=== PATIENT | female | born 1955 | race Caucasian/White ===

== ENCOUNTER 2020-10-05 12:05 | Day surgery (SDC) | payer MEDICARE, MEDICAID ==
[2020-10-05] VITALS (9 sets, daily range): BP systolic 113–141; BP diastolic 62–88
[~2020-10-05] VITALS: Ht 157.5 cm; Wt 62.1 kg
[2020-10-05] MEDS ORDERED: LOSA50TA3 PO (12:34)
[2020-10-05] MEDS ORDERED: normal saline 1,000 ML IV SCH (12:40)
[2020-10-05] MEDS ORDERED: diphenhydrAMINE 25mg capsule PO PRN (12:40)
[2020-10-05 12:54] LABS: BASOPHILS % (AUTO) 0.6 % (0-1); EOSINOPHILS # (AUTO) 0.1 X10'3 (0-0.9); EOSINOPHILS % (AUTO) 1.3 % (0-6); HEMATOCRIT 36.3 % (35.0-45.0); HEMOGLOBIN 12.1 g/dl (12.0-16.0); LYMPHOCYTES # (AUTO) 2.2 X10'3 (1.1-4.8); LYMPHOCYTES % (AUTO) 41.2 % (21-51); MEAN CORPUSCULAR HEMOGLOBIN 30.7 PG (27.0-31.0); MEAN CORPUSCULAR HGB CONC 33.3 g/dL (33.0-36.5); MEAN CORPUSCULAR VOLUME 92.1 FL (78-98); MEAN PLATELET VOLUME 9.1 FL (7.4-10.4); MONOCYTES # (AUTO) 0.4 X10'3 (0-0.9); MONOCYTES % (AUTO) 7.3 % (2-12); NEUTROPHILS # (AUTO) 2.7 X10'3 (1.8-7.7); NEUTROPHILS % (AUTO) 49.6 % (42-75); PLATELET COUNT 219 X10'3 (140-440); RED BLOOD COUNT 3.94 X10'6 (4.20-5.60); RED CELL DISTRIBUTION WIDTH 13.1 % (11.5-14.5); WHITE BLOOD COUNT 5.4 X10'3 (4.5-11.0)
[2020-10-05 13:01] LABS: ALBUMIN 3.8 G/DL (3.4-5.0); ANION GAP 9 (8-16); BLOOD UREA NITROGEN 19 MG/DL (7-18); BUN/CREATININE RATIO 22.4 (6.6-38.0); CALCIUM 8.7 MG/DL (8.5-10.1); CHLORIDE 106 MMOL/L (99-107); CREATININE 0.85 MG/DL (0.40-0.90); GLUCOSE 89 MG/DL (70-104); MAGNESIUM 2.4 MG/DL (1.5-2.4); POTASSIUM 3.8 MMOL/L (3.5-5.1); SODIUM 143 MMOL/L (135-145); TOTAL CARBON DIOXIDE 28.4 MMOL/L (24-32); eGFR 67 ML/MIN
[2020-10-05] MEDS ORDERED: verapamil 2.5 mg/ml inj IV ONE (15:37)
[2020-10-05] MEDS ORDERED: midazolam 1 mg/ML 2ml injection ONE ×2 (15:37→16:18)
[2020-10-05] MEDS ORDERED: heparin 1,000unit/ml 10ml vial 10 ML ONE (15:38)
[2020-10-05] MEDS ORDERED: iohexol 350MG/ML 100ml bottle IV ONE (15:38)
[2020-10-05] MEDS ORDERED: LIDOcaine 1% (10mg/ml)w/preservative injection 20ml MDV ONE (15:38)
[2020-10-05] MEDS ORDERED: nitroGLYCERIN-Tridil 50MG/D5W 250 ML IV ONE (15:38)
[2020-10-05] MEDS ORDERED: iohexol 350 MG/ML 50ML vial IV ONE (15:38)
[2020-10-05] MEDS ORDERED: fentaNYL/PF 50MCG/1 ML 2ML syringe ONE (15:38)
== END 2020-10-05 19:39 | disposition home or self-care (01) ==
LOC: SSTAY O 12:05
PROVIDERS: ATTEND Internal Medicine Cardiovascular Disease
DX: R07.89 Other chest pain (principal); E78.00 Pure hypercholesterolemia, unspecified; I10 Essential (primary) hypertension; I47.1 Supraventricular tachycardia; Z79.899 Other long term (current) drug therapy; Z79.82 Long term (current) use of aspirin; Z98.890 Other specified postprocedural states; Z72.89 Other problems related to lifestyle; Z83.6 Family history of other diseases of the respiratory system; Z82.49 Family history of ischemic heart disease and other diseases of the circulatory system
CPT/HCPCS: 36415; 80048; 83735; 85025; 85610; 93005; 93458; 99152; 99153; C1769; C1894; J1644; J2001; J2250; J3010; J7030; Q0163; Q9967; A4620; J3490

== ENCOUNTER 2021-05-18 06:46 | Inpatient (IN) | payer MEDICARE, MEDICAID ==
[2021-05-10 15:03] LABS: BASOPHILS % (AUTO) 0.5 % (0-1); EOSINOPHILS # (AUTO) 0.1 X10'3 (0-0.9); LYMPHOCYTES # (AUTO) 2.7 X10'3 (1.1-4.8); MEAN CORPUSCULAR HEMOGLOBIN 31.5 PG (27.0-31.0); MEAN CORPUSCULAR HGB CONC 34.1 g/dL (33.0-36.5); MEAN CORPUSCULAR VOLUME 92.4 FL (78-98); MEAN PLATELET VOLUME 8.6 FL (7.4-10.4); MONOCYTES # (AUTO) 0.6 X10'3 (0-0.9); MONOCYTES % (AUTO) 8.3 % (2-12); NEUTROPHILS # (AUTO) 3.2 X10'3 (1.8-7.7); NEUTROPHILS % (AUTO) 49.2 % (42-75); PRE OP HEMATOCRIT 37.6 % (35.0-45.0); PRE OP HEMOGLOBIN 12.8 g/dL (12.0-16.0); PRE OP PLATELET COUNT 257 X10'3 (140-440); PRE OP PROTIME 10.5 SECONDS (9.0-12.0); RED BLOOD COUNT 4.06 X10'6 (4.20-5.60); RED CELL DISTRIBUTION WIDTH 13.2 % (11.5-14.5)
[2021-05-10 15:04] LABS: ALBUMIN 3.6 G/DL (3.4-5.0); ALBUMIN/GLOBULIN RATIO 1.1 (1.1-1.5); ALKALINE PHOSPHATASE 72 IU/L (46-116); BLOOD UREA NITROGEN 15 MG/DL (7-18); BUN/CREATININE RATIO 16.5 (6.6-38.0); CALCIUM 8.3 MG/DL (8.5-10.1); CHLORIDE 106 MMOL/L (99-107); CREATININE 0.91 MG/DL (0.40-0.90); PRE OP ALT 30 U/L (30-65); PRE OP ANION GAP 7 (8-16); PRE OP AST 21 U/L (10-37); PRE OP BILIRUB, TOTAL 0.2 MG/DL (0.0-1.0); PRE OP GLUCOSE 75 MG/DL (70-104); PRE OP POTASSIUM 4.1 MMOL/L (3.4-5.1); PRE OP SODIUM 143 MMOL/L (135-145); TOTAL CARBON DIOXIDE 29.7 MMOL/L (24-32); TOTAL PROTEIN 6.9 G/DL (6.4-8.2); eGFR 62 ML/MIN
[~2021-05-18] VITALS: Ht 157.5 cm; Wt 62.7 kg
[2021-05-18] VITALS (20 sets, daily range): BP systolic 97–144; BP diastolic 52–90
[~2021-05-18 06:46] MED LIST: BUTA-244 PO; DOCUMENT DATE & TIME OF BETA-BLOCKER PO ONE; LORA-268 PO; LOSA50TA3 PO; METO-395 PO; VANCOMYCIN INJ 1000 MG in NORMAL SALINE 250ml IV.SOLN IV ONE; acetaminophen 325mg tablet PO ONE; cefazolin/dext.iso 2gm/50ml IV ONE; celeCOXIB 100mg capsule PO ONE; famotidine 20mg tablet PO ONE; gabapentin 300mg capsule PO ONE; metoclopramide 5 mg/ml inj IV ONE; oxyCODONE SR 10mg (sust. release) tab -2 tabs (20mg) PO ONE; ringers solution, lacted 1,000 ML IV SCH; tranexamic acid inj. 1,000 MG in 0.7% saline 100 ML PMX IV ONE
[2021-05-18] MEDS ORDERED: bisacodyl 10mg suppository rectal RC PRN (07:15)
[2021-05-18] MEDS ORDERED: acetaminophen 325mg tablet PO PRN (07:15)
[2021-05-18] MEDS ORDERED: diphenhydrAMINE 25mg capsule PO PRN ×2 (07:15)
[2021-05-18] MEDS ORDERED: HYDROmorphone 1 mg/ml syringe IV PRN (07:15)
[2021-05-18] MEDS ORDERED: magnesium hydroxide 30ml (MOM) UD suspension PO PRN (07:15)
[2021-05-18] MEDS ORDERED: HYDROmorphone inj. 0.5 MG/0.5 ML DISP.SYRIN IV PRN (07:15)
[2021-05-18] MEDS ORDERED: ketorolac trometh. 30mg/ml inj. ONE (07:50)
[2021-05-18] MEDS ORDERED: epiNEPHrine 1 mg/ml inj ONE (07:50)
[2021-05-18] MEDS ORDERED: cloNIDine hcl/PF 100mcg/ml inj ONE (07:50)
[2021-05-18] MEDS ORDERED: ROPIVAcaine 0.5% (5mg/ml) 30ml vial ONE ×2 (07:50→10:10)
[2021-05-18] MEDS ORDERED: vancomycin 1,000mg inj ONE (07:55)
[2021-05-18] MEDS ORDERED: MIDAZolam 1 MG/ML 5ML VIAL ONE (08:24)
[2021-05-18] MEDS ORDERED: fentaNYL/PF 50MCG/1 ML 2ML syringe ONE (08:24)
[2021-05-18] MEDS ORDERED: ondansetron/PF 4mg/2ml inj IV PRN (09:10)
[2021-05-18] MEDS ORDERED: morphine 2 MG/ML inj. syringe IV PRN (09:10)
[2021-05-18] MEDS ORDERED: meperidine/PF 25mg/ml syringe IV PRN ×3 (09:10)
[2021-05-18] MEDS ORDERED: ringers solution, lacted 1,000 ML IV SCH (09:10)
[2021-05-18] MEDS ORDERED: ROPIVAcaine 0.2% (10 MG/5 ML) BOLUS INJECTION ADDCANAL PRN (09:10)
[2021-05-18] MEDS ORDERED: morphine 4 MG/ML inj SYRINge IV PRN (09:10)
[2021-05-18] MEDS ORDERED: proCHLORperazine 10 MG/2 ml inj IV PRN (09:10)
[2021-05-18] MEDS ORDERED: dexamethasone sod phosphate 4mg/ml inj. ONE (10:10)
--- NOTE | 2021-05-18 10:20 | NUR ---
Received from OR via BED, accompanied by Anesthesiologist ANALI and report given by Anesthesiolgist. PT DROWSY, OXYGENATING WELL ON ROOM AIR, NO RESP DISTRESS NOTED. NO C/O NAUSEA OR PAIN AT THIS TIME, PT HAD SAB. NO SENSATION OR MOVEMENT FROM THE WAIST DOWN. PEDAL PULSES PAL BILAT. L KNEE WRAP IN PLACE OVER MARIMAR DSG. POWDER PACK TO L KNEE ORDERED. ON-Q CONNECTED TO LLE CATHETER PER MD ORDERS. SCDS IN PLACE, NO CHAMBERLAIN.
[2021-05-18] MEDS: ROPIVAcaine 0.2%/PF PUMP/bolus 545 ML ADDCANAL SCH (10:28)
--- NOTE | 2021-05-18 12:00 | NUR ---
Report called to receiving nurse. Transferred via BED Belongings WITH , PT GLASSES WITH PT. DENIES PAIN, SAB STILL EFFECTVE. NO MOVEMENT YET. TOLERATING PO FLUIDS WELL. VSS. TELE ORDER DCD PER DR RUDOLPH. TRANSFERRED TO 3 SURG IN STABLE CONDITION. Special Issues communicated to receiving nurse.
[2021-05-18] MEDS: potassium cl 20mEq in 1/2 NS 1,000 ML IV SCH ×2 (12:32→15:15)
[2021-05-18] MEDS ORDERED: tranexamic acid inj. 630 MG in normal saline 100ml IV soln 93.7 ML IV ONE (13:30)
[2021-05-18] MEDS: oxyCODONE/APAP 10/325mg tablet PO PRN ×2 (14:48→20:18)
[2021-05-18] MEDS: losartan 50mg tablet PO SCH (16:00)
[2021-05-18] MEDS: ceFAZolin/D5W- 1GM premix 50 ML IV SCH (16:46)
[2021-05-18] MEDS: aspirin 325mg tablet PO SCH (16:46)
[2021-05-18] MEDS: gabapentin 300mg capsule PO SCH ×2 (16:47→21:24)
[2021-05-18] MEDS: multivitamins, therapeutics tablet PO SCH (16:47)
[2021-05-18] MEDS: metoprolol succinate 25mg (24-HOUR) SR. Tablet PO SCH (16:49)
--- NOTE | 2021-05-18 18:36 | NUR ---
Problems reprioritized. Patient report given, questions answered & plan of care reviewed with Chandan MANCUSO.
[2021-05-18] MEDS: ascorbic acid 500mg tablet PO SCH (19:31)
[2021-05-18] MEDS ORDERED: vancomycin/NS 1 GM ADD-VANTAGE 250 ML IV SCH (20:00)
[2021-05-18] MEDS: LORazepam 0.5 MG tablet PO SCH (21:00)
[2021-05-18] MEDS: sennosides 8.6mg tablet PO SCH (21:24)
[2021-05-19] MEDS: oxyCODONE/APAP 10/325mg tablet PO PRN ×3 (00:01→13:06)
[2021-05-19] MEDS: ceFAZolin/D5W- 1GM premix 50 ML IV SCH (00:02)
[2021-05-19] MEDS: potassium cl 20mEq in 1/2 NS 1,000 ML IV SCH ×3 (04:26→12:59)
[2021-05-19 04:44] VITALS: BP 129/74
[2021-05-19 06:03] LABS: BASOPHILS % (AUTO) 0.4 % (0-1); EOSINOPHILS % (AUTO) 0.4 % (0-6); HEMATOCRIT 33.9 % (35.0-45.0); HEMOGLOBIN 11.2 g/dl (12.0-16.0); LYMPHOCYTES # (AUTO) 1.9 X10'3 (1.1-4.8); LYMPHOCYTES % (AUTO) 19.4 % (21-51); MEAN CORPUSCULAR HEMOGLOBIN 31.8 PG (27.0-31.0); MEAN CORPUSCULAR HGB CONC 33.1 g/dL (33.0-36.5); MEAN CORPUSCULAR VOLUME 96.2 FL (78-98); MEAN PLATELET VOLUME 9.5 FL (7.4-10.4); MONOCYTES # (AUTO) 0.7 X10'3 (0-0.9); MONOCYTES % (AUTO) 7.5 % (2-12); NEUTROPHILS # (AUTO) 6.9 X10'3 (1.8-7.7); NEUTROPHILS % (AUTO) 72.3 % (42-75); PLATELET COUNT 188 X10'3 (140-440); RED BLOOD COUNT 3.53 X10'6 (4.20-5.60); RED CELL DISTRIBUTION WIDTH 13.3 % (11.5-14.5); WHITE BLOOD COUNT 9.5 X10'3 (4.5-11.0)
--- NOTE | 2021-05-19 06:24 | NUR ---
PT RESTING IN BED. NO DISTRESS NOTED. PT HAS Q BALL IN PLACE AT 14ML HR. CALL LIGHT WITHIN REACH
--- NOTE | 2021-05-19 06:30 | NUR ---
Patient in room [facility]. I have received report from Ld Jameson and had the opportunity to ask questions and assume patient care.
[2021-05-19 06:47] LABS: ANION GAP 12 (8-16); CHLORIDE 106 MMOL/L (99-107); POTASSIUM 4.2 MMOL/L (3.5-5.1); SODIUM 139 MMOL/L (135-145); TOTAL CARBON DIOXIDE 21.3 MMOL/L (24-32)
[2021-05-19 07:00] VITALS: BP 106/73
[2021-05-19] MEDS: ondansetron/PF 4mg/2ml inj IV PRN ×2 (07:16→17:45)
[2021-05-19] MEDS: gabapentin 300mg capsule PO SCH ×3 (07:56→21:00)
[2021-05-19] MEDS: multivitamins, therapeutics tablet PO SCH (07:56)
[2021-05-19] MEDS: ascorbic acid 500mg tablet PO SCH ×2 (07:57→20:00)
[2021-05-19] MEDS: aspirin 325mg tablet PO SCH (07:57)
[2021-05-19] MEDS: losartan 50mg tablet PO SCH (07:57)
[2021-05-19] MEDS: metoprolol succinate 25mg (24-HOUR) SR. Tablet PO SCH (08:00)
[2021-05-19 11:45] VITALS: BP 119/59
--- NOTE | 2021-05-19 14:08 | NUR ---
Pt s/p left TKA, seen at bedside for written and verbal protein education. Pt verbalized understanding. Pt endorses a good appetite however reports feeling nauseous with PO intake. Pt reports receiving PRN antiemetic. Pt denies food allergies or food preferences. Pt denies difficulty chewing/swallowing. RD contact information provided and pt encouraged to reach out for questions and/or food preferences. Will remain available. Addendum: 05/19/21 at [address] Amended: Links added.
[2021-05-19] MEDS ORDERED: HYDROcodone/acetaminophen 10/325mg tab PO PRN (14:45)
[2021-05-19] MEDS ORDERED: HYDROcodone/acetaminophen 5mg/325mg tablet PO PRN (14:45)
[2021-05-19] MEDS ORDERED: normal saline 1000ml 1,000 ML IV ONE (14:50)
--- NOTE | 2021-05-19 18:22 | NUR ---
Patient in room [facility]. I have received report from Shirley MANCUSO and had the opportunity to ask questions and assume patient care.
[2021-05-19 19:51] VITALS: BP 161/78
[2021-05-19] MEDS: celeCOXIB 100mg capsule PO SCH (20:00)
[2021-05-19] MEDS: sennosides 8.6mg tablet PO SCH (21:00)
[2021-05-19] MEDS: LORazepam 0.5 MG tablet PO SCH (21:00)
[2021-05-19] MEDS ORDERED: proCHLORperazine 10 MG/2 ml inj IV ONE (21:10)
[2021-05-19 23:55] VITALS: BP 158/80
[2021-05-20 06:14] LABS: HEMATOCRIT 34.4 % (35.0-45.0); HEMOGLOBIN 11.7 g/dl (12.0-16.0)
[2021-05-20 06:15] LABS: BASOPHILS % (AUTO) 0.3 % (0-1); EOSINOPHILS # (AUTO) 0.1 X10'3 (0-0.9); EOSINOPHILS % (AUTO) 1.7 % (0-6); LYMPHOCYTES # (AUTO) 1.9 X10'3 (1.1-4.8); LYMPHOCYTES % (AUTO) 22.5 % (21-51); MEAN CORPUSCULAR HEMOGLOBIN 31.4 PG (27.0-31.0); MEAN CORPUSCULAR VOLUME 92.5 FL (78-98); MEAN PLATELET VOLUME 9.5 FL (7.4-10.4); MONOCYTES # (AUTO) 0.9 X10'3 (0-0.9); MONOCYTES % (AUTO) 10.6 % (2-12); NEUTROPHILS # (AUTO) 5.5 X10'3 (1.8-7.7); NEUTROPHILS % (AUTO) 64.9 % (42-75); PLATELET COUNT 208 X10'3 (140-440); RED BLOOD COUNT 3.72 X10'6 (4.20-5.60); WHITE BLOOD COUNT 8.4 X10'3 (4.5-11.0)
--- NOTE | 2021-05-20 06:18 | NUR ---
Patient in room [facility] 348. I have received report from Ld MANCUSO and had the opportunity to ask questions and assume patient care.
[2021-05-20 07:00] VITALS: BP 148/75
[2021-05-20] MEDS: metoprolol succinate 25mg (24-HOUR) SR. Tablet PO SCH (08:00)
[2021-05-20] MEDS: celeCOXIB 100mg capsule PO SCH (08:47)
[2021-05-20] MEDS: ascorbic acid 500mg tablet PO SCH (08:47)
[2021-05-20] MEDS: gabapentin 300mg capsule PO SCH (08:48)
[2021-05-20] MEDS: aspirin 325mg tablet PO SCH (08:48)
[2021-05-20] MEDS: losartan 50mg tablet PO SCH (08:48)
[2021-05-20] MEDS: multivitamins, therapeutics tablet PO SCH (08:48)
[2021-05-20] MEDS: ROPIVAcaine 0.2%/PF PUMP/bolus 545 ML ADDCANAL SCH (08:57)
[2021-05-20 11:00] VITALS: BP 155/79
--- NOTE | 2021-05-20 13:05 | NUR ---
Late entry: Discharged patient home, patient verbalized understanding of all instructions made. Peripheral IV catheter removed, tip intact. Instructed patient to ensure she has all her belongings with her before leaving the hospital. Patient was educated about the OnQ ball management including removal of the catheter when the medicine is empty. Instructed patient when to call the surgeon
== END 2021-05-20 13:05 | disposition home or self-care (01) | DRG 470 ==
LOC: PAS 06:46 → SUR 3N 06:47 → PAS 07:14 → SUR 3N 07:14 → PAS 05-20 05:40 → SUR 3N 05-20 05:40 → UNDOADMIN 05-20 05:40 → SUR 3N 05-20 05:40
PROVIDERS: ADMIT Orthopaedic Surgery; ATTEND Orthopaedic Surgery
PROC: 3E0T3BZ Introduction of Anesthetic Agent into Peripheral Nerves and Plexi, Percutaneous Approach (ICD-10-PCS; 2021-05-18)
PROC: 3E0T33Z Introduction of Anti-inflammatory into Peripheral Nerves and Plexi, Percutaneous Approach (ICD-10-PCS; 2021-05-18)
PROC: 0SRD0J9 Replacement of Left Knee Joint with Synthetic Substitute, Cemented, Open Approach (ICD-10-PCS; principal; 2021-05-18 08:08)
DX: M17.12 Unilateral primary osteoarthritis, left knee (principal); Z79.899 Other long term (current) drug therapy
CPT/HCPCS: 36415; 73560; 80051; 80053; 82948; 85025; 85610; 85730; 87081; 97110; 97530; A4215; A7000; C1713; C1776; G0378; J0171; J0690; J0735; J0780; J1100; J1170; J1885; J2250; J2405; J2765; J2795; J3010; J3370; J3480; J3490; J7030; J7120; U0003; U0005

== ENCOUNTER 2021-10-05 12:35 | Emergency (ER) | payer MEDICARE, MEDICAID ==
[~2021-10-05] VITALS: Ht 154.9 cm; Wt 60.0 kg
[~2021-10-05 12:35] MED LIST changes: -DOCUMENT DATE & TIME OF BETA-BLOCKER PO ONE; -VANCOMYCIN INJ 1000 MG in NORMAL SALINE 250ml IV.SOLN IV ONE; -acetaminophen 325mg tablet PO ONE; -cefazolin/dext.iso 2gm/50ml IV ONE; -celeCOXIB 100mg capsule PO ONE; -famotidine 20mg tablet PO ONE; -gabapentin 300mg capsule PO ONE; -metoclopramide 5 mg/ml inj IV ONE; -oxyCODONE SR 10mg (sust. release) tab -2 tabs (20mg) PO ONE; -ringers solution, lacted 1,000 ML IV SCH; -tranexamic acid inj. 1,000 MG in 0.7% saline 100 ML PMX IV ONE
[2021-10-05 13:20] LABS: BASOPHILS % (AUTO) 0.3 % (0-1); EOSINOPHILS # (AUTO) 0.1 X10'3 (0-0.9); EOSINOPHILS % (AUTO) 0.6 % (0-6); HEMATOCRIT 38.7 % (35.0-45.0); HEMOGLOBIN 12.8 g/dl (12.0-16.0); LYMPHOCYTES # (AUTO) 1.7 X10'3 (1.1-4.8); LYMPHOCYTES % (AUTO) 18.6 % (21-51); MEAN CORPUSCULAR HEMOGLOBIN 29.5 PG (27.0-31.0); MEAN CORPUSCULAR VOLUME 89.3 FL (78-98); MEAN PLATELET VOLUME 8.3 FL (7.4-10.4); MONOCYTES # (AUTO) 0.6 X10'3 (0-0.9); MONOCYTES % (AUTO) 6.9 % (2-12); NEUTROPHILS # (AUTO) 6.9 X10'3 (1.8-7.7); NEUTROPHILS % (AUTO) 73.6 % (42-75); PLATELET COUNT 265 X10'3 (140-440); RED BLOOD COUNT 4.33 X10'6 (4.20-5.60); RED CELL DISTRIBUTION WIDTH 14.4 % (11.5-14.5); WHITE BLOOD COUNT 9.3 X10'3 (4.5-11.0)
[2021-10-05 13:33] LABS: ALANINE AMINOTRANSFERASE 41 U/L (12-78); ALBUMIN 3.8 G/DL (3.4-5.0); ALBUMIN/GLOBULIN RATIO 1.2 (1.1-1.5); ALKALINE PHOSPHATASE 73 IU/L (46-116); ANION GAP 8 (8-16); ASPARTATE AMINO TRANSFERASE 26 U/L (10-37); BILIRUBIN,TOTAL 0.3 MG/DL (0.1-1.0); BLOOD UREA NITROGEN 16 MG/DL (7-18); BUN/CREATININE RATIO 16.2 (6.6-38.0); CALCIUM 8.8 MG/DL (8.5-10.1); CHLORIDE 102 MMOL/L (99-107); CREATININE 0.99 MG/DL (0.40-0.90); GLUCOSE 104 MG/DL (70-104); POTASSIUM 3.7 MMOL/L (3.5-5.1); SODIUM 139 MMOL/L (135-145); TOTAL CARBON DIOXIDE 29.5 MMOL/L (24-32); TOTAL PROTEIN 7.1 G/DL (6.4-8.2); eGFR 56 ML/MIN
[2021-10-05 13:43] LABS: LIPASE 159 U/L (73-393)
[2021-10-05] MEDS ORDERED: proCHLORperazine 10 MG/2 ml inj IV ONE (15:30)
[2021-10-05] MEDS ORDERED: normal saline 1000ML IV soln IVB ONE (15:30)
--- NOTE | 2021-10-05 16:44 | NUR ---
ASSISTING RN WITH PT CARE, PT IS RESTING QUIETLY ON GURKIERSTEN, FAMILY AT BEDSIDE, 1ST LITER NS INFUSING, MEDICATED PER ORDER
[2021-10-05] MEDS ORDERED: amox tr/potassium clavulanate 875/125mg TAB PO ONE (17:45)
[2021-10-05] MEDS ORDERED: ONDA4TAB12 PO (17:51)
[2021-10-05] MEDS ORDERED: AMOX-117 PO (17:51)
[2021-10-05 18:05] LABS: CLARITY,URINE CLEAR (Clear); COLOR,URINE YELLOW (Yellow); GLUCOSE, URINE NEGATIVE (Neg); KETONES,URINE TRACE mg/dl (Neg); LEUKOCYTE ESTERASE ,URINE NEGATIVE (Neg); NITRITES, URINE NEGATIVE (Neg); OCCULT BLOOD,URINE TRACE-INTACT (Neg); PROTEIN,URINE NEGATIVE (Neg); UROBILINOGEN,URINE 0.2 E.U/dL (0.2-1.0)
[2021-10-05 18:07] VITALS: BP 123/72
[2021-10-05 18:08] LABS: UA COLLECTION TYPE NON-SPECIFIED
[2021-10-05 18:12] LABS: BACTERIA,URINE 1+ /HPF (Neg); HYALINE CASTS 0-3 /LPF (NEGATIVE); MUCUS STRANDS FEW /LPF (Neg); SQUAMOUS EPITHELIAL CELL,UR MODERATE /LPF (FEW); WBC,URINE 0-4 /HPF (0-4)
== END 2021-10-05 18:08 | disposition home or self-care (01) ==
LOC: ER 12:35
DX: K52.9 Noninfective gastroenteritis and colitis, unspecified (principal); R11.0 Nausea; R07.89 Other chest pain; I10 Essential (primary) hypertension; Z86.69 Personal history of other diseases of the nervous system and sense organs; Z98.890 Other specified postprocedural states; Z79.2 Long term (current) use of antibiotics; Z79.899 Other long term (current) drug therapy
CPT/HCPCS: 36415; 74176; 80053; 81001; 83690; 83880; 84484; 85025; 93005; 96374; 99285; J0780; J7030

== ENCOUNTER 2021-10-13 10:29 | Outpatient (CLI) | payer MEDICARE, MEDICAID ==
[~2021-10-13 10:29] MED LIST changes: +AMOX-117 PO; +ONDA4TAB12 PO
[2021-10-13] MEDS ORDERED: iohexol 300mg/ml 100ml inj. ONE (10:53)
== END 2021-10-13 23:59 | disposition home or self-care (01) ==
LOC: RAD 10:29
PROVIDERS: ATTEND Family Medicine
DX: K57.30 Diverticulosis of large intestine without perforation or abscess without bleeding (principal); K76.89 Other specified diseases of liver; M47.819 Spondylosis without myelopathy or radiculopathy, site unspecified
CPT/HCPCS: 74177; Q9967

== ENCOUNTER 2024-11-09 11:19 | Emergency (ER) | payer MEDICARE, MEDICAID ==
[~2024-11-09] VITALS: Ht 154.9 cm; Wt 51.7 kg
[~2024-11-09 11:19] MED LIST changes: -AMOX-117 PO; +LOSA-416 PO; -LOSA50TA3 PO; +ONDA-243 PO; -ONDA4TAB12 PO
[2024-11-09 11:26] VITALS: TEMP 98
--- NOTE | 2024-11-09 11:41 | ELECTROCARDIOGRAPH REPORT ---
[facility] Test Date: 2024-11-09 Test Time: 11:38:33 Pat Name: NICKI MCDANIEL Department: EMERGENCY ROOM Room: Gender: F Audio Visual Engineer: IRISH : 1955 Requested By: MARIELA JEFFERS Order Number: [id number] Reading MD: Measurements Intervals Pound Rate: 66 P: 20 OR: 161 QRS: 6 QRSD: 102 T: 38 QT: 400 QTc: 420 Interpretive Statements Sinus rhythm Borderline T abnormalities, anterior leads Please click the below link to view image of tracing.
--- NOTE | 2024-11-09 12:01 | RADIOLOGY REPORT ---
CHEST RADIOGRAPH Indication: CP Technique: Single frontal view of the chest was obtained Comparison: None FINDINGS: Lines and Tubes: None Lungs: No focal consolidation. Pleura: No effusion. No pneumothorax. Cardiomediastinal contours: Unremarkable Bones: No acute osseous abnormality. IMPRESSION: 1. No acute cardiopulmonary disease.
[2024-11-09 12:02] LABS: BASOPHILS % (AUTO) 0.3 % (0-1); EOSINOPHILS % (AUTO) 0 % (0-6); HEMATOCRIT 39.1 % (35.0-45.0); LYMPHOCYTES # (AUTO) 2.5 X10'3 (1.1-4.8); LYMPHOCYTES % (AUTO) 51.8 % (21-51); MEAN CORPUSCULAR HGB CONC 33.3 g/dL (33.0-36.5); MONOCYTES # (AUTO) 0.4 X10'3 (0-0.9); MONOCYTES % (AUTO) 8.3 % (2-12); NEUTROPHILS # (AUTO) 1.9 X10'3 (1.8-7.7); NEUTROPHILS % (AUTO) 39.6 % (42-75); PLATELET COUNT 270 X10'3 (140-440); RED BLOOD COUNT 4.35 X10'6 (4.20-5.60); RED CELL DISTRIBUTION WIDTH 13.3 % (11.5-14.5); WHITE BLOOD COUNT 4.8 X10'3 (4.5-11.0)
[2024-11-09 12:54] LABS: APTT 28 SECONDS (22-32); PROTHROMBIN TIME 10.2 SECONDS (9.0-12.0)
[2024-11-09 12:56] LABS: ALANINE AMINOTRANSFERASE 28 U/L (12-78); ALBUMIN 3.9 G/DL (3.4-5.0); ALBUMIN/GLOBULIN RATIO 1.2 (1.1-1.5); ALKALINE PHOSPHATASE 86 IU/L (46-116); ANION GAP 8 (8-16); ASPARTATE AMINO TRANSFERASE 25 U/L (10-37); BILIRUBIN,TOTAL 0.4 MG/DL (0.1-1.0); BLOOD UREA NITROGEN 19 MG/DL (7-18); BUN/CREATININE RATIO 19.6 (10.0-20.0); CALCIUM 8.8 MG/DL (8.5-10.1); CHLORIDE 105 MMOL/L (99-107); CREATININE 0.97 MG/DL (0.40-0.90); GLUCOSE 85 MG/DL (70-104); POTASSIUM 4.8 MMOL/L (3.5-5.1); SODIUM 140 MMOL/L (135-145); TOTAL CARBON DIOXIDE 27.2 MMOL/L (24-32); TOTAL PROTEIN 7.2 G/DL (6.4-8.2); eCRCL 41 ML/MIN; eGFR 57 ML/MIN
[2024-11-09 13:06] LABS: FREE T4 (FREE THYROXINE) 1.05 NG/DL (0.73-1.40); PRO BRAIN NATRIURETIC PEPTIDE 287 PG/ML (0-125)
[2024-11-09 16:27] LABS: BILIRUBIN,URINE NEGATIVE (Neg); CLARITY,URINE CLEAR (Clear); COLOR,URINE YELLOW (Yellow); GLUCOSE, URINE NEGATIVE (Neg); KETONES,URINE TRACE mg/dl (Neg); LEUKOCYTE ESTERASE ,URINE TRACE (Neg); NITRITES, URINE NEGATIVE (Neg); OCCULT BLOOD,URINE SMALL (Neg); PROTEIN,URINE NEGATIVE (Neg); UROBILINOGEN,URINE 0.2 E.U/dL (0.2-1.0)
[2024-11-09 16:31] LABS: UA COLLECTION TYPE CLN CATCH MIDSTREAM; WBC,URINE 0-4 /HPF (0-4)
[2024-11-09 16:32] LABS: BACTERIA,URINE FEW /HPF (Neg); MUCUS STRANDS FEW /LPF (Neg); RBC,URINE 0-2 /HPF (0-2); SQUAMOUS EPITHELIAL CELL,UR MODERATE /LPF (FEW)
--- NOTE | 2024-11-09 17:14 | Physician Documentation ---
History of Present Illness ~ Chief Complaint: Chest Pain Stated Complaint: AFIB, CHEST PRESSURE CAME ON SUDDENLY Time Seen by MD: 15:57 Primary Medical Doctor: [facility] [place] [employer] Mode of Arrival: POV HPI 69-year-old female reports a chief complaint of chest pain. Patient states that she was at home where she had an episode it AFib was seen on her watch. Patient states that she did have mild chest pain but converted out of it on her own and states that she initially was going to come to the ER yesterday. Patient returns to the ER today for chest pain. She states it it has a improved but she feels quite a tightness. Currently not taking medications therapy has been in symptoms. No other complaints at this time Medication Reconciliation Allergies: Coded Allergies: No Known Allergies (Unverified , 10/05/20) Scheduled Lorazepam (Ativan), 1 TAB PO HS, (Reported) Losartan* (Cozaar*), 1 TAB PO DAILY, (Reported) Metoprolol Succinate (Metoprolol Succinate), 1 TAB PO DAILY, (Reported) Scheduled PRN Butalb/Acetaminophen/Caffeine (Ztipmx-Pfts-Qhgs 50-325-40 Tab), 1 TAB PO DAILY PRN for migraine headaches, (Reported) ONDANSETRON ODT 4mg tablet (Ondansetron Odt), 1 TABLET PO Q6H PRN for nausea/vomiting Past Medical History Past Medical History: Seizures, Hypertension, *MUSCULOSKELETAL* Past Surgical History: orthopedic surgeries Drug Use: none Lives In: Home Physical Exam Vital Signs: Temperature: 98.0, Source: Temporal, Heart Rate: 60, Respiratory Rate: 19, BP: 183/82, Pulse Oximetry: 98, Weight: 51.700 Oxygen Flow Rate: 0 Physical Exam General: Well developed, well nourished, no distress. HEENT: Atraumatic, normal conjunctiva, moist mucous membranes. Neck: Full range of motion, supple. Respiratory: Lungs clear, no respiratory distress. Chest: No accessory muscle use, nontender. Cardiovascular: Regular rate and rhythm. Gastrointestinal: Soft, nontender, nondistended. Bowel sounds present. Extremities: Normal range of motion, nontender, normal capillary refill, no deformity. Back: No midline tenderness, no CVA tenderness. Neurologic: Oriented x4. Distal gross motor and sensory intact all four extremities. Moves all 4 extremities spontaneously. Psychiatric: Normal mood and affect. Skin: Normal color, warm and dry. No edema, no ecchymosis Progress Results/Orders Results/Orders Orders - SCARLET RAYGOZA Chest,Single View (11/09/24 11:55) Cult Urine + [address] (11/09/24 16:32) Completed Orders - SCARLET RAYGOZA Pt Inr (11/09/24 11:55) PTT (11/09/24 11:55) Chest,Single View (11/09/24 11:55) TSH (11/09/24 11:55) Free T4 (11/09/24 11:55) Ua W/Microscopic, Cult If Ind (11/09/24 16:02) Vital Signs 11/09/24 11/09/24 11/09/24 11:26 15:54 15:57 Temp 98.0 Pulse 66 60 Resp 15 19 19 B/P (MAP) 176/84 183/82 (115) Pulse Ox 98 98 O2 Flow Rate 0 Laboratory Tests Test 11/09/24 11:44 11/09/24 14:28 11/09/24 16:02 White Blood Count 4.8 Red Blood Count 4.35 Hemoglobin 13.0 Hematocrit 39.1 Mean Corpuscular Volume 90.0 Mean Corpuscular Hemoglobin 30.0 Mean Corpuscular Hemoglobin Concent 33.3 Red Cell Distribution Width 13.3 Platelet Count 270 Mean Platelet Volume 8.0 Neutrophils (%) (Auto) 39.6 L Lymphocytes (%) (Auto) 51.8 H Monocytes (%) (Auto) 8.3 Eosinophils (%) (Auto) 0 Basophils (%) (Auto) 0.3 Neutrophils # (Auto) 1.9 Lymphocytes # (Auto) 2.5 Monocytes # (Auto) 0.4 Eosinophils # (Auto) 0.0 Basophils # (Auto) 0.0 CBC Comment Prothrombin Time 10.2 INR International Normalized Ratio 1.0 Activated Partial Thromboplast Time 28 Coagulation Comments Sodium Level 140 Potassium Level 4.8 Chloride Level 105 Carbon Dioxide Level 27.2 Anion Gap 8 Blood Urea Nitrogen 19 H Creatinine 0.97 H Estimated GFR/1.73 m2 57 BUN/Creatinine Ratio 19.6 Glucose Level 85 Calcium Level 8.8 Total Bilirubin 0.4 Aspartate Amino Transf (AST/SGOT) 25 Alanine Aminotransferase (ALT/SGPT) 28 Alkaline Phosphatase 86 Troponin I High Sensitivity 12 13 Pro-B-Type Natriuretic Peptide 287 H Total Protein 7.2 Albumin 3.9 Globulin 3.3 Albumin/Globulin Ratio 1.2 Thyroid Stimulating Hormone (TSH) 1.60 Free Thyroxine 1.05 Chemistry Comments Troponin I High Sens Percent Delta 8 Troponin I Hi Sens Absolute Change 1 Urine Specimen Description Cln catch midstream Urine Color Yellow Urine Clarity Clear Urine pH 6.0 Urine Specific [place] 1.020 Urine Protein Negative Urine Glucose (UA) Negative Urine Ketones Trace H Urine Occult Blood Small Urine Nitrite Negative Urine Bilirubin Negative Urine Urobilinogen 0.2 Urine Leukocyte Esterase Trace H Urine RBC 0-2 Urine WBC 0-4 Urine Squamous Epithelial Cells Moderate Urine Bacteria Few Urine Mucus Few Urine Culture Indicated Indicated Volume Urine Centrifuged 10 ml Urine Comment Medical Decision Making Additional info obtained from: old records Findings After detailed discussion and joint medical decision-making, diagnostic and imaging results were discussed with the patient. At this time patient does not appear to have evidence of NSTEMI or STEMI based on EKG findings interpreted by myself. Patient has a related troponins likelihood of ACS is very unlikely. Patient has had a slightly elevated BNP, she isn't in CHF. Patient's O2 satting normal. Patient's chest x-rays were normal as well. I have no reason to believe the patient would be having PE based on her physical exam and her history and no further workup is required in regards to this. Patient does state that her chest pain has improved and patient will be discharged. ER pr ecautions given. Patient is stable upon discharge. All patient questions answered to satisfaction Differential Dx:Considerations: Include: other (ACS, CHF, angina, atypical chest pain, PE, chest pain) Departure Disposition: HOME / SELF CARE / HOMELESS Impression: Primary Impression: Chest pain Additional Impression: Palpitations Condition: Stable Discharge Instructions: Nonspecific Chest Pain, Adult Referrals: NO PRIMARY CARE PROVIDER (PCP) Education Educated: Patient Educated regarding: diagnosis, treatment Signature Scribe Signature: None used Attestation: Scribed for Scarlet Raygoza by Scarlet ABRAMS . 11/09/24 17:17 SCARLET RAYGOZA November 09, 2024 17:14
[2024-11-09 17:59] VITALS: BP 184/85; PULSE 78; RESP 15; O2SAT 96
== END 2024-11-09 18:00 | disposition home or self-care (01) ==
LOC: ER 11:20
DX: R07.9 Chest pain, unspecified (principal); I10 Essential (primary) hypertension; I48.91 Unspecified atrial fibrillation
CPT/HCPCS: 36415; 71045; 80053; 81001; 83880; 84439; 84443; 84484; 85025; 87088; 93005; 99285